=== PATIENT | female | born 1970 | race African-American/Black ===

== ENCOUNTER 2020-05-26 17:58 | Inpatient (IN) | payer MEDICAID, OTHER ==
[~2020-05-26] VITALS: Ht 170.2 cm; Wt 137.4 kg
[2020-05-26 19:19] LABS: BASOPHILS % 0.5 % (0.0-2.0); EOSINOPHILS % 0.6 % (0.0-5.0); HEMATOCRIT. 34.3 % (36.0-48.0); HEMOGLOBIN. 10.6 g/dL (12.0-16.0); LYMPHOCYTES % 11.4 % (20.0-50.0); MEAN CORPUSCULAR HEMOGLOBIN 24.3 pg (28.0-32.0); MEAN CORPUSCULAR VOLUME 78.5 fL (81.0-99.0); MEAN PLATELET VOLUME 7.1 fl (7.4-10.4); MONOCYTES % 4.7 % (2.0-8.0); NEUTROPHILS % 82.8 % (40.0-76.0); PLATELET 343 x1000/uL (130-400); RED BLOOD CELL COUNT 4.37 mill/uL (4.2-5.4); RED CELL DISTRIBUTION WIDTH 17.9 % (11.6-14.6)
[2020-05-26 19:20] LABS: CHLORIDE 103 mEq/L (98-107)
[2020-05-26 19:26] LABS: INR 1.1; PROTHROMBIN TIME 11.6 sec (9.6-11.0)
[2020-05-26 19:37] LABS: T4 FREE 0.99 ng/dL (0.76-1.46)
[2020-05-26] MEDS ORDERED: FUROSEMIDE 20MG/2ML VIAL IVP NR (20:15)
[2020-05-26] MEDS ORDERED: CEFTRIAXONE 1 G PREMIX 50 ML IV NR (21:00)
[2020-05-26 21:13] LABS: CLARITY URINE CLEAR (CLEAR); COLOR URINE YELLOW (YELLOW); KETONES URINE NEGATIVE (NEGATIVE); LEUKOCYTE ESTERASE URINE NEGATIVE (NEGATIVE); NITRITE URINE NEGATIVE (NEGATIVE); OCCULT BLOOD URINE NEGATIVE (NEGATIVE); PROTEIN URINE 1+ (NEGATIVE); SPECIFIC GRAVITY URINE 1.019 (1.005-1.030)
[2020-05-26] MEDS ORDERED: AZITHROMYCIN 500 MG in DEXT 5% WATER 250 ML IV SCH (22:00)
[2020-05-26] MEDS ORDERED: IOHEXOL-350 100 ML BOTTLE ONE (23:23)
[2020-05-27] VITALS (7 sets, daily range): BP systolic 119–167; BP diastolic 71–95
[2020-05-27] MEDS ORDERED: AMLO5TAB88 PO (02:27)
[2020-05-27] MEDS ORDERED: ALLO100T MT (02:27)
[2020-05-27] MEDS ORDERED: LISI10TA26 PO (02:27)
[2020-05-27] MEDS ORDERED: [UNRECOGNIZED DRUG - CODE] PO (02:27)
[2020-05-27] MEDS ORDERED: IPRATROPIUM/ALBUTEROL 0.5-3(2.5)MG/3ML NEB HHN PRN (02:30)
[2020-05-27] MEDS: METHYLPREDNISOLONE SOD SUCC 40 MG/ML VIAL IV SCH ×3 (05:21→21:49)
[2020-05-27] MEDS: AMLODIPINE 10MG TABLET PO SCH (08:13)
[2020-05-27] MEDS: ENOXAPARIN 40MG/0.4ML SYR SUBCUT SCH ×2 (08:14→21:50)
[2020-05-27] MEDS ORDERED: NON FORMULARY PATIENT HOME MED ORI SCH (09:00)
[2020-05-27] MEDS: FUROSEMIDE 40MG/4ML VIAL IVP SCH (09:00)
[2020-05-27] MEDS ORDERED: ENOXAPARIN 40MG/0.4ML SYR SUBCUT SCH (09:00)
[2020-05-27] MEDS: LEVOFLOXACIN 500MG TABLET PO SCH (11:12)
[2020-05-27 23:04] LABS: *AMPHETAMINES SCREEN URINE NEGATIVE (NEGATIVE); *BARBITURATES SCREEN URINE NEGATIVE (NEGATIVE)
[2020-05-27 23:05] LABS: *BENZODIAZEPINES SCREEN URINE NEGATIVE (NEGATIVE); *COCAINE SCREEN URINE NEGATIVE (NEGATIVE); CANNABINOID URINE SCREEN PRESUMTIVE POSITIVE (NEGATIVE); METHADONE URINE SCREEN NEGATIVE (NEGATIVE); OPIATES URINE SCREEN PRESUMTIVE POSITIVE (NEGATIVE); PHENCYCLIDINE URINE SCREEN NEGATIVE (NEGATIVE)
[2020-05-28] VITALS (7 sets, daily range): BP systolic 118–136; BP diastolic 72–90
[2020-05-28] MEDS: IPRATROPIUM/ALBUTEROL 0.5-3(2.5)MG/3ML NEB HHN SCH (01:39)
[2020-05-28] MEDS: METHYLPREDNISOLONE SOD SUCC 40 MG/ML VIAL IV SCH (05:56)
[2020-05-28 07:06] LABS: CHLORIDE 99 mEq/L (98-107)
[2020-05-28 07:21] LABS: HEMATOCRIT. 33.4 % (36.0-48.0); HEMOGLOBIN. 10.3 g/dL (12.0-16.0); MEAN CORPUSCULAR HEMOGLOBIN 24.2 pg (28.0-32.0); MEAN CORPUSCULAR VOLUME 78.6 fL (81.0-99.0); MEAN PLATELET VOLUME 7.4 fl (7.4-10.4); PLATELET 343 x1000/uL (130-400); RED BLOOD CELL COUNT 4.25 mill/uL (4.2-5.4); RED CELL DISTRIBUTION WIDTH 18.1 % (11.6-14.6)
[2020-05-28 08:46] LABS: BG BASE EXCESS 13.1 mmol/L (-2.0-2.0); BG DEOXYHEMOGLOBIN 16.8 % (0.0-5.0); BG HCO3 ACT 42.3 mmol/L (22.0-26.0); BG METHEMOGLOBIN 0.3 % (0.0-1.5); BG OXYHEMOGLOBIN 81.9 % (94.0-97.0); BG PCO2 83.3 mmHg (35.0-45.0); BG PH 7.324 (7.350-7.450); BG PO2 50.6 mmHg (75.0-100.0); BG TOTAL HEMOGLOBIN 11.7 g/dL (12.0-18.0)
[2020-05-28] MEDS: BUDESONIDE 0.5MG/2ML NEB HHN SCH ×2 (08:53→21:03)
[2020-05-28] MEDS: AMLODIPINE 10MG TABLET PO SCH (08:58)
[2020-05-28] MEDS: FUROSEMIDE 40MG/4ML VIAL IVP SCH (08:58)
[2020-05-28] MEDS: ENOXAPARIN 40MG/0.4ML SYR SUBCUT SCH ×2 (08:58→21:04)
[2020-05-28] MEDS ORDERED: LEVO500T89 MT (11:13)
[2020-05-28] MEDS ORDERED: FURO-151 MT (11:13)
[2020-05-28] MEDS ORDERED: ALBU18HF2 IH (11:13)
[2020-05-28] MEDS ORDERED: P20 MT (11:13)
[2020-05-28] MEDS: LEVOFLOXACIN 500MG TABLET PO SCH (12:15)
[2020-05-28 13:35] LABS: PLATELET ESTIMATE NORMAL
[2020-05-28] MEDS: ALBUTEROL (0.083%) 2.5MG/3ML NEB HHN SCH ×2 (14:17→21:03)
[2020-05-28] MEDS ORDERED: ACETAMINOPHEN 325MG TABLET PO PRN (17:30)
[2020-05-28] MEDS: PREDNISONE 20MG TABLET PO SCH (17:40)
[2020-05-28] MEDS ORDERED: HYDROCODONE/ACETAMINOPHEN 5/325MG TABLET PO PRN (22:45)
[2020-05-28] MEDS ORDERED: GUAIFENESIN-DM 200MG-20MG/10ML UDC PO PRN (22:45)
[2020-05-28] MEDS ORDERED: ZOLPIDEM TARTRATE 5MG TABLET PO PRN (22:45)
[2020-05-29] VITALS: BP 131/87
[2020-05-29] MEDS: ALBUTEROL (0.083%) 2.5MG/3ML NEB HHN SCH (02:11)
[2020-05-29 04:00] VITALS: BP 132/76
[2020-05-29 07:57] VITALS: BP 125/82
[2020-05-29] MEDS: BUDESONIDE 0.5MG/2ML NEB HHN SCH ×2 (09:00→20:38)
[2020-05-29] MEDS: IPRATROPIUM/ALBUTEROL 0.5-3(2.5)MG/3ML NEB HHN SCH ×3 (09:00→20:38)
[2020-05-29] MEDS: GUAIFENESIN 600MG ER TABLET PO SCH ×2 (09:03→20:02)
[2020-05-29] MEDS: AMLODIPINE 10MG TABLET PO SCH (09:03)
[2020-05-29] MEDS: PREDNISONE 20MG TABLET PO SCH ×2 (09:03→17:34)
[2020-05-29] MEDS: FUROSEMIDE 40MG/4ML VIAL IVP SCH (09:03)
[2020-05-29] MEDS: ENOXAPARIN 40MG/0.4ML SYR SUBCUT SCH ×2 (09:04→20:02)
[2020-05-29 12:00] VITALS: BP 126/79
[2020-05-29] MEDS: LEVOFLOXACIN 500MG TABLET PO SCH (12:44)
[2020-05-29 16:00] VITALS: BP 140/68
[2020-05-29 20:00] VITALS: BP 138/83
[2020-05-30] VITALS: BP 135/84
[2020-05-30] MEDS: ALBUTEROL (0.083%) 2.5MG/3ML NEB HHN SCH ×3 (02:33→13:59)
[2020-05-30 04:00] VITALS: BP 131/76
[2020-05-30 06:18] LABS: HEMATOCRIT. 34.1 % (36.0-48.0); HEMOGLOBIN. 10.5 g/dL (12.0-16.0); MEAN CORPUSCULAR HEMOGLOBIN 24.1 pg (28.0-32.0); MEAN CORPUSCULAR VOLUME 78.3 fL (81.0-99.0); MEAN PLATELET VOLUME 7.5 fl (7.4-10.4); PLATELET 317 x1000/uL (130-400); RED BLOOD CELL COUNT 4.35 mill/uL (4.2-5.4); RED CELL DISTRIBUTION WIDTH 17.6 % (11.6-14.6)
[2020-05-30 06:26] LABS: CHLORIDE 97 mEq/L (98-107)
[2020-05-30] MEDS: BUDESONIDE 0.5MG/2ML NEB HHN SCH (07:13)
[2020-05-30 08:00] VITALS: BP 128/82
[2020-05-30] MEDS: FUROSEMIDE 40MG/4ML VIAL IVP SCH (09:06)
[2020-05-30] MEDS: AMLODIPINE 10MG TABLET PO SCH (09:06)
[2020-05-30] MEDS: ENOXAPARIN 40MG/0.4ML SYR SUBCUT SCH (09:06)
[2020-05-30] MEDS: GUAIFENESIN 600MG ER TABLET PO SCH (09:06)
[2020-05-30] MEDS: PREDNISONE 20MG TABLET PO SCH (09:06)
[2020-05-30 09:32] LABS: BG BASE EXCESS 13.3 mmol/L (-2.0-2.0); BG CARBOXYHEMOGLOBIN 0.8 % (0.5-1.5); BG DEOXYHEMOGLOBIN 27.1 % (0.0-5.0); BG FRACTION INSPIRED OXYGEN 21; BG HCO3 ACT 41.7 mmol/L (22.0-26.0); BG METHEMOGLOBIN 0.3 % (0.0-1.5); BG OXYGEN SATURATION 72.6 % (92.0-98.5); BG OXYHEMOGLOBIN 71.8 % (94.0-97.0); BG PCO2 75.1 mmHg (35.0-45.0); BG PH 7.362 (7.350-7.450); BG PO2 39.5 mmHg (75.0-100.0); BG SAMPLE SITE RIGHT RADIAL; BG TOTAL HEMOGLOBIN 11.9 g/dL (12.0-18.0); BG VENT MODE ROOM AIR
[2020-05-30] MEDS: LEVOFLOXACIN 500MG TABLET PO SCH (11:48)
[2020-05-30 12:00] VITALS: BP 120/71
[2020-05-30 17:47] LABS: PLATELET ESTIMATE NORMAL
== END 2020-05-30 17:43 | disposition home or self-care (01) | DRG 133 ==
LOC: ER 18:07 → EDBEDREQ 23:25 → ENRESERV 23:26 → 7WST 05-27 01:43 → 5WST 05-28 01:20
PROVIDERS: ADMIT Internal Medicine; ATTEND Internal Medicine
PROC: 5A09357 Assistance with Respiratory Ventilation, Less than 24 Consecutive Hours, Continuous Positive Airway Pressure (ICD-10-PCS; principal; 2020-05-28)
PROC: 5A09357 Assistance with Respiratory Ventilation, Less than 24 Consecutive Hours, Continuous Positive Airway Pressure (ICD-10-PCS; 2020-05-29)
DX: J96.01 Acute respiratory failure with hypoxia (principal); I50.43 Acute on chronic combined systolic (congestive) and diastolic (congestive) heart failure; J18.9 Pneumonia, unspecified organism; I11.0 Hypertensive heart disease with heart failure; E44.1 Mild protein-calorie malnutrition; E66.2 Morbid (severe) obesity with alveolar hypoventilation; R16.0 Hepatomegaly, not elsewhere classified; J44.0 Chronic obstructive pulmonary disease with (acute) lower respiratory infection; D64.9 Anemia, unspecified; E11.9 Type 2 diabetes mellitus without complications; E78.5 Hyperlipidemia, unspecified; E05.90 Thyrotoxicosis, unspecified without thyrotoxic crisis or storm; E78.00 Pure hypercholesterolemia, unspecified; R26.2 Difficulty in walking, not elsewhere classified; F12.90 Cannabis use, unspecified, uncomplicated; Z20.822 Contact with and (suspected) exposure to COVID-19; Z68.42 Body mass index [BMI] 45.0-49.9, adult; Z91.010 Allergy to peanuts; Z91.018 Allergy to other foods; Z79.899 Other long term (current) drug therapy; Z90.710 Acquired absence of both cervix and uterus
CPT/HCPCS: 36415; 36600; 71045; 71275; 80048; 80053; 80305; 81003; 82375; 82805; 83605; 83880; 84439; 84443; 84484; 85025; 93005; 93306; 94640; 94660; 99291; J0456; J0696; J1650; J1940; J2920; J7060; J7512; J7626; Q9967; U0003